=== PATIENT | female | born 1940 | race Caucasian/White ===

== ENCOUNTER → 2017-11-21 | Outpatient (CLI) | payer MEDICARE ==
--- NOTE | 2017-11-21 14:09 | Diagnostic Imaging Report ---
EXAMINATION: PA and lateral views of the chest. COMPARISON: None CLINICAL HISTORY: Atrial fibrillation, hypertension DISCUSSION: Lines/tubes: None. Lungs: The lungs are well inflated and clear. There is no evidence of pneumonia or pulmonary edema. Pleura: There is no pleural effusion or pneumothorax. Heart and mediastinum: Cardiomediastinal silhouette is unremarkable. Pulmonary vasculature is normal. Bones and soft tissues: No acute bony abnormalities. Mild degenerative changes in the thoracic spine IMPRESSION: No acute cardiopulmonary abnormalities. Signed by: Dr. Justin Portillo M.D. on 11/21/2017 2:06 PM
== END ==
LOC: RAD 11:48
PROVIDERS: ATTEND Internal Medicine Cardiovascular Disease
DX: I10 Essential (primary) hypertension (principal); I48.91 Unspecified atrial fibrillation
CPT/HCPCS: 71046

== ENCOUNTER 2018-03-22 14:00 | Outpatient (RCR) | payer MEDICARE | END 2018-03-26 | LOC: PT 14:00 | PROVIDERS: ATTEND Family Medicine | DX: G57.01 Lesion of sciatic nerve, right lower limb (principal) | CPT/HCPCS: 97110 ×6; 97161; G8978; G8979 ==